=== PATIENT | female | born 1955 | race African-American/Black ===

== ENCOUNTER 2024-05-17 08:02 | Day surgery (SDC) | payer OTHER ==
[2024-05-13 10:30] LABS: Absolute Basophils 0.1 K/uL (0-0.5); Absolute Eosinophils 0.3 K/uL (0-0.5); Absolute Lymphocytes (CBC) 1.4 K/uL (0.7-4.9); Absolute Monocytes 0.5 K/uL (0.1-1.3); Absolute Neutrophil 6.7 K/uL (1.8-8.0); Basophils % 0.6 % (0-1.3); Hematocrit 46.3 % (36.0-45.0); Hemoglobin 15.2 g/dL (12.0-15.0); Lymphocytes % 15.4 % (15.3-44.8); MCH 29.1 pg (27.0-35.0); MCHC 32.9 g/dL (32.0-36.0); MCV 88.5 fL (80-100); MPV 7.7 fL (7.6-11.3); Monocytes % 5.9 % (3.3-12.3); Neutrophils % 75.1 % (41.7-73.7); Nucleated Red Blood Cells % 0.1 % (0-0); Platelets 314 thou/uL (152-406); RBC Red Blood Cell Count 5.23 M/uL (3.86-4.86); Red Cell Distribution Width 13.2 % (12.1-15.2)
[2024-05-13 10:51] LABS: Anion Gap 8.1 mEq/L (5.0-15.0); Potassium 5.1 mEq/L (3.5-5.1)
[2024-05-17] MEDS ORDERED: propofoL 200 MG/20 ML VIAL IV ONE ×2 (08:23→10:05)
[2024-05-17] MEDS ORDERED: GLYCOPYRROLATE 0.2 MG/ML SYR ONE (08:23)
[2024-05-17] MEDS ORDERED: LIDOCAINE 1% MPF 30 ML VIAL ONE (08:23)
[2024-05-17] MEDS: INSULIN REGULAR (HUMAN) 100 UNIT/ML ONE (09:15)
[2024-05-17] MEDS: NA CHLORIDE 0.9% 1,000 ML ONE (09:41)
[2024-05-17 10:37] VITALS: TEMP 97.8
[2024-05-17 11:04] VITALS: BP 106/76; O2SAT 99
--- NOTE | 2024-05-17 13:06 | EKG ---
Test Date: 2024-05-13 Test Time: 10:12:25 Public Relations Representative: ROMA MEASUREMENT RESULTS: Intervals: Rate: 78 WA: 170 QRSD: 76 QT: 396 QTc: 451 [place]: P: 83 WA: 170 QRS: 68 T: 92 INTERPRETIVE STATEMENTS: Normal sinus rhythm Possible Left atrial enlargement Borderline ECG No previous ECG available for comparison Electronically Signed On 05-17-24 12:53:52 CDT by Wilder Mercer
== END 2024-05-17 11:00 | disposition home or self-care (01) ==
LOC: OR 08:02
PROVIDERS: ATTEND Internal Medicine Gastroenterology
PROC: 0DBL8ZX Excision of Transverse Colon, Via Natural or Artificial Opening Endoscopic, Diagnostic (ICD-10-PCS; principal; 2024-05-17 08:30)
DX: R19.5 Other fecal abnormalities (principal); K57.30 Diverticulosis of large intestine without perforation or abscess without bleeding; K64.8 Other hemorrhoids; K63.5 Polyp of colon
CPT/HCPCS: 93005; 85025; 80048; 36415; 82947 ×2; 88305; 45385; 45380; J2704 ×2; J2001; J7030

== ENCOUNTER 2024-06-02 15:51 | Emergency (ER) | payer OTHER ==
[2024-06-02] MEDS ORDERED: NA CHLORIDE 0.9% 1,000 ML ONE ×2 (16:32→17:51)
[2024-06-02 17:11] LABS: Absolute Basophils 0.1 K/uL (0-0.5); Absolute Eosinophils 0.2 K/uL (0-0.5); Absolute Lymphocytes (CBC) 1.8 K/uL (0.7-4.9); Absolute Monocytes 0.5 K/uL (0.1-1.3); Absolute Neutrophil 3.7 K/uL (1.8-8.0); Basophils % 1.1 % (0-1.3); Eosinophils % 3.9 % (0-4.4); Hematocrit 42.7 % (36.0-45.0); Lymphocytes % 28.3 % (15.3-44.8); MCH 29.2 pg (27.0-35.0); MCHC 32.8 g/dL (32.0-36.0); MCV 88.9 fL (80-100); MPV 7.7 fL (7.6-11.3); Monocytes % 7.4 % (3.3-12.3); Neutrophils % 59.3 % (41.7-73.7); Platelets 285 thou/uL (152-406); Red Cell Distribution Width 13.5 % (12.1-15.2)
[2024-06-02 17:31] LABS: ALT/SGPT 27 U/L (13-56); Albumin 3.1 g/dL (3.4-5.0); Albumin/Globulin Ratio 0.7 (1.1-1.8); Alkaline Phosphatase 178 U/L (45-117); Anion Gap 7.3 mEq/L (5.0-15.0); BUN Blood Urea Nitrogen 11 mg/dL (7-18); Bicarbonate 30 mEq/L (21-32); Globulin 4.7 g/dL (2.3-3.5); Glomerular Filtration Rate 57 ml/min (=/>90); Protein, Total 7.8 g/dL (6.4-8.2); Sodium Level 135 mEq/L (136-145)
[2024-06-02 17:32] LABS: AST/SGOT 26 U/L (15-37); Bilirubin Total < 0.2 mg/dL (0.2-1.0); Potassium 4.3 mEq/L (3.5-5.1)
[2024-06-02 17:33] LABS: Glucose Level 457 mg/dL (74-106)
[2024-06-02] MEDS ORDERED: INSULIN REGULAR (HUMAN) 100 UNIT/ML ONE (17:50)
--- NOTE | 2024-06-02 19:31 | EDPHYS ---
Physician Documentation [facility] Name: Olivia Huizar Age: 68 yrs Sex: Female : 1955 Arrival Date: 06/02/2024 Time: 15:51 Bed 17 Private MD: ED Physician Rancho Dewitt HPI: 06/02 16:22 This 68 yrs old Black Female presents to ER via Ambulatory with complaints of High sb4 Blood Sugar. 16:28 Patient states that she had routine blood work done yesterday. She was called with sb4 results today and told to come to the emergency department for elevated blood sugar. She denies any nausea, vomiting, polyuria, polydipsia. Denies any recent changes in medications. Denies any illnesses. States that she is only on oral medication for her diabetes, but does not know the name. States that she does check her blood sugar every day and it is usually around 180. Historical: - Allergies: 16:05 Metformin HCl; tm6 - PMHx: 16:05 Diabetes mellitus; Chronic obstructive lung disease; Hypertensive disorder; tm6 Osteoporosis; home O2; - PSHx: 16:05 Cholecystectomy; tubal ligation; tm6 - Immunization history:: Client reports receiving the 2nd dose of the Covid vaccine. - Infectious Disease History:: Denies. - Social history:: Smoking status: Patient denies any tobacco usage or history of. Patient/guardian denies using alcohol. ROS: 16:28 Constitutional: Negative for fever, chills, and weight loss, sb4 16:28 All other systems are negative, Exam: 16:28 Constitutional: This is a well developed, well nourished patient who is awake, alert, sb4 and in no acute distress. Head/Face: Normocephalic, atraumatic. Eyes: Extra-ocular motions intact. Periorbital areas with no swelling, redness, or edema. ENT: Mucous membranes moist. Cardiovascular: Regular rate and rhythm with a normal S1 and S2. Respiratory: No increased work of breathing, no retractions or nasal flaring. Skin: Warm, dry with normal turgor. Normal color with no rashes, no lesions, and no evidence of cellulitis. Vital Signs: 16:04 BP 125 / 70; Pulse 94; Resp 17; Temp 99(O); Pulse Ox 95% on R/A; MAP 87 mmHg; Weight tm6 55.34 kg; Height 4 ft. 11 in. ; Pain 0/10; 17:00 BP 120 / 58; Pulse 78; Resp 16; Pulse Ox 100% on R/A; db 18:00 BP 121 / 59; Pulse 75; Resp 16; Pulse Ox 100% on R/A; db 19:47 BP 115 / 88; Pulse 65; Resp 16; Pulse Ox 100% on R/A; jb4 16:04 Body Mass Index 24.64 (55.34 kg, 149.86 cm) tm6 16:04 Pain Scale: Adult tm6 MDM: 16:09 Medical Screening Exam initiated sb4 17:34 Data reviewed: vital signs, nurses notes, lab test result(s), and as a result, I will sb4 discharge patient. Counseling: I had a detailed discussion with the patient and/or guardian regarding the historical points, exam findings, and any diagnostic results supporting the discharge/admit diagnosis, lab results, to return to the emergency department if symptoms worsen or persist or if there are any questions or concerns that arise at home. 06/02 16:14 Order name: Glucose, Ancillary Testing; Complete Time: 16:14 EDMS 06/02 16:22 Order name: CBC with Diff; Complete Time: 17:20 sb4 06/02 16:22 Order name: CMP; Complete Time: 17:33 sb4 06/02 19:34 Order name: Glucose, Ancillary Testing; Complete Time: 19:34 EDMS 06/02 16:22 Order name: IV Saline Lock; Complete Time: 17:03 sb4 06/02 16:22 Order name: Labs collected and sent; Complete Time: 17:03 sb4 06/02 18:07 Order name: Blood Glucose Level: after fluids; Complete Time: 19:24 sb4 Administered Medications: 16:48 Drug: NS 0.9% IV 1000 ml IV at 1 bolus Per protocol; to be given as a bolus over 60 db minutes Route: IV; Rate: 1 bolus; Site: right forearm; 17:53 Drug: NS 0.9% IV 1000 ml IV at 1000 ml once; to be given as a bolus over 60 minutes db Route: IV; Rate: 1000 ml; Site: right forearm; 19:00 Follow up: Response: No adverse reaction; IV Status: Completed infusion; IV Intake: jb4 1000ml 17:53 Drug: Insulin Regular Human IVP 10 units IVP once {Co-Signature: ph (Kalli Serrano RN).} Route: IVP; Site: right forearm; 19:50 Follow up: Response: No adverse reaction; Marked relief of symptoms; Blood sugar is jb4 lowered Point of Care Testing: Blood Glucose: 16:04 Blood Glucose: 450 mg/dL; tm6 Ranges: Critical Glucose Levels:Adult <50 mg/dl or >400 mg/dl <40 mg/dl or >180 mg/dl Disposition: 20:14 Co-signature as Attending Physician, Rancho Dewitt MD I reviewed the patient's care rn provided by the Advanced Practice Provider and agree with the diagnosis and treatment plan. Disposition Summary: 06/02/24 19:31 Discharge Ordered Notes: Location: Home sb4 Problem: new sb4 Symptoms: have improved sb4 Condition: Stable sb4 Diagnosis - Type 2 diabetes mellitus with hyperglycemia sb4 Followup: sb4 - With: Private Physician - When: 1 week - Reason: Recheck today's complaints, Re-evaluation by your physician Discharge Instructions: - Discharge Summary Sheet sb4 - Hyperglycemia sb4 - Blood Glucose Monitoring, Adult sb4 Forms: - Patient Portal Instructions sb4 - Leadership Thank You Letter sb4 Signatures: Dispatcher [employer] EDMS Rancho Dewitt MD MD rn Benton, Danielle RN Dimple Diaz PA-C PACarl sb4 Sebas Alston RN RN tm6 Carlitos Beard RN jb4 Kalli Serrano RN ph Corrections: (The following items were deleted from the chart) 16:08 16:05 Allergies: No Known Allergies; tm6 tm6 16:23 16:23 CBC+H.LAB.BRZ ordered. EDMS EDMS 16:23 16:23 COMPREHENSIVE METABOLIC PANEL+C.LAB.BRZ ordered. EDMS EDMS 16:23 16:23 Urinalysis+U.LAB.BRZ ordered. EDMS EDMS
--- NOTE | 2024-06-02 19:31 | ER ---
Nurse's Notes [facility] Name: Olivia Huizar Age: 68 yrs Sex: Female : 1955 Arrival Date: 06/02/2024 Time: 15:51 Bed 17 Private MD: Diagnosis: Type 2 diabetes mellitus with hyperglycemia Presentation: 06/02 16:05 Chief complaint: Patient states: call from my doctor saying my blood sugar was high, tm6 said to come to the ER. Coronavirus screen: Client denies travel out of the [place] in the last 14 days. Ebola Screen: Patient negative for fever greater than or equal to 101.5 degrees Fahrenheit, and additional compatible Ebola Virus Disease symptoms Patient denies exposure to infectious person. Patient denies travel to an Ebola-affected area in the 21 days before illness onset. No symptoms or risks identified at this time. 16:05 Method Of Arrival: Ambulatory tm6 17:29 Initial Sepsis Screen: Does the patient meet any 2 criteria? No. Patient's initial tm6 sepsis screen is negative. Does the patient have a suspected source of infection? No. Patient's initial sepsis screen is negative. Risk Assessment: Do you want to hurt yourself or someone else? Patient reports no desire to harm self or others. Onset of symptoms was June 02, 2024. 17:29 Acuity: VONDA 3 tm6 Triage Assessment: 16:05 General: Appears in no apparent distress. Behavior is calm, cooperative. Pain: Denies tm6 pain. EENT: No signs and/or symptoms were reported regarding the EENT system. Neuro: Level of Consciousness is awake, alert, obeys commands, Oriented to person, place, time, situation. Cardiovascular: Patient's skin is warm and dry. Respiratory: Airway is patent Respiratory effort is even, unlabored, Respiratory pattern is regular, symmetrical. GI: No signs and/or symptoms were reported involving the gastrointestinal system. Abdomen is flat, non-distended. : No signs and/or symptoms were reported regarding the genitourinary system. Derm: No signs and/or symptoms reported regarding the dermatologic system. Musculoskeletal: No signs and/or symptoms reported regarding the musculoskeletal system. Historical: - Allergies: 16:05 Metformin HCl; tm6 - PMHx: 16:05 Diabetes mellitus; Chronic obstructive lung disease; Hypertensive disorder; tm6 Osteoporosis; home O2; - PSHx: 16:05 Cholecystectomy; tubal ligation; tm6 - Immunization history:: Client reports receiving the 2nd dose of the Covid vaccine. - Infectious Disease History:: Denies. - Social history:: Smoking status: Patient denies any tobacco usage or history of. Patient/guardian denies using alcohol. Screenin:05 [facility] ED Fall Risk Assessment (Adult) History of falling in the last 3 months, db including since admission No falls in past 3 months (0 pts) Confusion or Disorientation No (0 pts) Intoxicated or Sedated No (0 pts) Impaired Gait No (0 pts) Mobility Assist Device Used No (0 pt) Altered Elimination No (0 pt) Score/Fall Risk Level 0 - 2 = Low Risk Oriented to surroundings, Maintained a safe environment. Abuse screen: Denies threats or abuse. Denies injuries from another. Nutritional screening: No deficits noted. Tuberculosis screening: No symptoms or risk factors identified. Assessment: 16:35 Reassessment: Patient appears in no apparent distress at this time. Patient and/or db family updated on plan of care and expected duration. Pain level reassessed. Patient is alert, oriented x 3, equal unlabored respirations, skin warm/dry/pink. PATIENT PLACED ON NC 2L. NOTED O2 95% ON RA. STATES USES O2 2L NC AT HOME. NOTIFIED PROVIDER. General: Appears in no apparent distress. comfortable, Behavior is calm, cooperative. Neuro: Level of Consciousness is awake, alert, obeys commands, Oriented to person, place, time, situation. Cardiovascular: No deficits noted. Respiratory: No deficits noted. Airway is patent Respiratory effort is even, unlabored, Respiratory pattern is regular, symmetrical. 17:21 Reassessment: Patient appears in no apparent distress at this time. Patient and/or db family updated on plan of care and expected duration. Pain level reassessed. Patient is alert, oriented x 3, equal unlabored respirations, skin warm/dry/pink. 18:37 Reassessment: Patient appears in no apparent distress at this time. Patient and/or db family updated on plan of care and expected duration. Pain level reassessed. Patient is alert, oriented x 3, equal unlabored respirations, skin warm/dry/pink. 19:47 Reassessment: Patient appears in no apparent distress at this time. Patient and/or jb4 family updated on plan of care and expected duration. Pain level reassessed. Patient is alert, oriented x 3, equal unlabored respirations, skin warm/dry/pink. Vital Signs: 16:04 BP 125 / 70; Pulse 94; Resp 17; Temp 99(O); Pulse Ox 95% on R/A; MAP 87 mmHg; Weight tm6 55.34 kg; Height 4 ft. 11 in. ; Pain 0/10; 17:00 BP 120 / 58; Pulse 78; Resp 16; Pulse Ox 100% on R/A; db 18:00 BP 121 / 59; Pulse 75; Resp 16; Pulse Ox 100% on R/A; db 19:47 BP 115 / 88; Pulse 65; Resp 16; Pulse Ox 100% on R/A; jb4 16:04 Body Mass Index 24.64 (55.34 kg, 149.86 cm) tm6 16:04 Pain Scale: Adult tm6 ED Course: 15:55 Patient arrived in ED. mr 15:56 Dimple Betancourt PA-C is PHCP. sb4 15:56 Rancho Dewitt MD is Attending Physician. sb4 16:05 Arm band placed on right wrist. tm6 16:08 Allergy band placed. tm6 16:28 Adamaris Calloway, BYRON is Primary Nurse. db 16:47 Inserted saline lock: 22 gauge in left forearm, using aseptic technique. Flushed with db 10 mL NS. 16:55 Initial lab(s) drawn, by me, sent to lab. db 17:29 Triage completed. tm6 19:47 Provided Education on: discharge instructions.. jb4 19:47 No provider procedures requiring assistance completed. IV discontinued, intact, jb4 bleeding controlled, No redness/swelling at site. Pressure dressing applied. Administered Medications: 16:48 Drug: NS 0.9% IV 1000 ml IV at 1 bolus Per protocol; to be given as a bolus over 60 db minutes Route: IV; Rate: 1 bolus; Site: right forearm; 17:53 Drug: NS 0.9% IV 1000 ml IV at 1000 ml once; to be given as a bolus over 60 minutes db Route: IV; Rate: 1000 ml; Site: right forearm; 19:00 Follow up: Response: No adverse reaction; IV Status: Completed infusion; IV Intake: jb4 1000ml 17:53 Drug: Insulin Regular Human IVP 10 units IVP once {Co-Signature: ph (Kalli Serrano db RN).} Route: IVP; Site: right forearm; 19:50 Follow up: Response: No adverse reaction; Marked relief of symptoms; Blood sugar is jb4 lowered Medication: 17:05 VIS not applicable for this client. db Point of Care Testing: Blood Glucose: 16:04 Blood Glucose: 450 mg/dL; tm6 Ranges: Intake: 19:00 IV: 1000ml; Total: 1000ml. jb4 Outcome: 19:31 Discharge ordered by . sb4 19:47 Discharged to home ambulatory, with family, jb4 19:47 Condition: stable 19:47 Discharge instructions given to patient, Instructed on discharge instructions, follow up and referral plans. Demonstrated understanding of instructions, follow-up care, 19:51 Patient left the ED. jb4 Signatures: Tangela Escobedo, Ortiz Alcantar mr Carlitos Beard, RN RN jb4 Adamaris Calloway RN RN Dimple Briseno, PACarl PASebas Skinner RN RN tm6 Kalli Serrano RN ph Corrections: (The following items were deleted from the chart) 16:08 16:05 Allergies: No Known Allergies; tm6 tm6 17:04 16:47 Inserted saline lock: 22 gauge in left forearm, using aseptic technique. Flushed db with 10 mL NS db 17:04 16:47 Initial lab(s) drawn, by me, sent to lab. db db
[2024-06-02 20:23] VITALS: TEMP 99
[2024-06-02 20:29] VITALS: O2SAT 100
[2024-06-02 20:31] VITALS: BP 115/88
== END 2024-06-02 19:51 | disposition home or self-care (01) ==
LOC: ER 15:51
DX: E11.65 Type 2 diabetes mellitus with hyperglycemia (principal); I10 Essential (primary) hypertension; J44.9 Chronic obstructive pulmonary disease, unspecified; Z99.81 Dependence on supplemental oxygen
CPT/HCPCS: 96361; 85025; 36415; 82947 ×2; 80053; 96374; 99284; J7030 ×2